=== PATIENT | female | born 1950 | race American Indian/Alaskan Native ===

== ENCOUNTER 2017-09-03 11:13 | Emergency (ER) | payer BC ==
[2017-09-03 11:40] VITALS: TEMP 98.1
--- NOTE | 2017-09-03 12:05 | ED PDOC ---
Arrival/HPI - History of Present Illness Time/Duration: 24 hours Symptom Onset: Sudden Symptom Course: Unchanged Context: Standing, Walking - General Chief Complaint: Dizziness/Lightheaded Time Seen by Provider: 09/03/17 11:34 - History of Present Illness Narrative History of Present Illness (Text): 66 year old female with a PMHx of HTN, GERD, Uterine CA (5 years Remission) presents with Dizziness x 1 day with associated generalized weakness. Patient denies any recent changes in medication, palpitations, or increased urinary frequency. Patient denies any headache, fever, chills, chest pain, abdominal pain, n/v/d, or constipation. Patient denies falling. She states her dizziness gets worse when she stands from a seated position and walks around. Patient does admit to poor appetite, and sick contacts. She denies frequent caffeine use as well. (Dwayne Hull) Associated Symptoms (Text): 09/03/17 12:25 Seen and examined with the resident. Our history and physical exam reveals an elderly woman complaining of dizziness since yesterday. She has a spinning sensation. She had some nausea which has resolved. No vomiting. She had a headache which has resolved. She has bilateral upper extremity numbness. There is generalized, but no focal, weakness. No difficulty with ambulating or with speech. No chest pain palpitations or dyspnea. Her exam is normal including a full neurological examination. (Lico Bhatia) Past Medical History - Provider Review Nursing Documentation Reviewed: Yes - Infectious Disease Hx of Infectious Diseases: None - Cardiac Hx Cardiac Disorders: Yes - Pulmonary Hx Respiratory Disorders: No - Neurological Hx Neurological Disorder: No - HEENT Hx HEENT Disorder: Yes Other/Comment: glasses - Renal Hx Renal Disorder: No - Endocrine/Metabolic Hx Endocrine Disorders: No - Hematological/Oncological Hx Blood Disorders: No Hx Cancer: Yes (Uterine) Hx Chemotherapy: Yes - Integumentary Hx Dermatological Disorder: No - Musculoskeletal/Rheumatological Hx Musculoskeletal Disorders: No - Gastrointestinal Hx Gastrointestinal Disorders: Yes - Genitourinary/Gynecological Hx Genitourinary Disorders: No - Psychiatric Hx Psychophysiologic Disorder: No Hx Substance Use: No - Surgical History Hx Hysterectomy: Yes - Anesthesia Hx Anesthesia: Yes Hx Anesthesia Reactions: No Family/Social History - Physician Review Nursing Documentation Reviewed: Yes Family/Social History: Hypertension (Father) Smoking Status: Never Smoked Hx Alcohol Use: No Hx Substance Use: No Allergies/Home Meds Allergies/Adverse Reactions: Allergies No Known Allergies Allergy (Verified 09/03/17 11:33) Home Medications: Home Meds Medication Instructions Recorded Confirmed Aspirin [Adult Low Dose Aspirin EC] 1 tab PO DAILY 09/03/17 09/03/17 Levocetirizine Dihydrochloride 5 mg PO DAILY 09/03/17 09/03/17 [Levocetirizine Dihydrochloride] Pantoprazole Sodium [Protonix] 40 mg PO BID 09/03/17 09/03/17 Rosuvastatin Calcium [Crestor] 10 mg PO DAILY 09/03/17 09/03/17 amLODIPine [Norvasc] 5 mg PO DAILY 09/03/17 09/03/17 Review of Systems - Physician Review All systems were reviewed & negative as marked: Yes (As per HPI) - Review of Systems Respiratory: absent: SOB Cardiovascular: absent: Chest Pain, Palpitations Physical Exam Vital Signs Reviewed: Yes Temperature: Afebrile Blood Pressure: Normal Pulse: Regular Respiratory Rate: Normal Pain Distress: None Mental Status: Positive for: Alert and Oriented X 3 - Systems Exam Head: Present: Atraumatic, Normocephalic. No: Tenderness, Swelling, Abrasion Pupils: Present: PERRL Extroacular Muscles: Present: EOMI Conjunctiva: Present: Normal Ears: Present: Normal Mouth: Present: Dry. No: Moist Mucous Membranes Pharnyx: Present: Normal Nose (External): Present: Atraumatic Neck: No: JVD, Bruit Respiratory/Chest: Present: Clear to Auscultation. No: Wheezes, Rales, Rhonchi Cardiovascular: Present: Regular Rate and Rhythm, Normal S1, S2, Peripheal Pulses Present. No: Murmurs Abdomen: Present: Normal Bowel Sounds. No: Tenderness, Distention, Peritoneal Signs Lower Extremity: No: Edema Neurological: Present: GCS=15, Speech Normal Psychiatric: Present: Alert, Oriented x 3 Vital Signs Temp Pulse Resp BP Pulse Ox 09/03/17 11:37 98.1 F 77 14 121/66 99 Medical Decision Making Reassessment Condition: Re-examined, Improved - Lab Interpretations I have reviewed the lab results: Yes (Labs Unremarkable) - RAD Interpretation Vocational Rehabilitation Teacher: Radiologist - EKG Interpretation Interpreted by ED Physician: Yes (NSR, no ST or T wave changes) Type: 12 lead EKG ED Course and Treatment: 66 year old with PMHx of HTN, GERD, and Uterine CA presents w/ dizziness x 1 day. --CMP/CBC --Troponin I --UA --EKG --Head CT --Fluid Bolus --Meclizine --Reassess and Disposition (Dwayne Hull) - Lab Interpretations Lab Results: 09/03/17 12:20 09/03/17 13:02 Lab Results 09/03/17 13:02: Sodium 142, Potassium 3.6, Chloride 104, Carbon Dioxide 26, Anion Gap 15, BUN 12, Creatinine 0.8, Est GFR ( Amer) > 60, Est GFR (Non- Af Amer) > 60, Random Glucose 101, Calcium 9.5, Total Bilirubin 0.3, AST 25, ALT 25, Alkaline Phosphatase 63, Troponin I < 0.01, Total Protein 7.8, Albumin 4.2, Globulin 3.6, Albumin/Globulin Ratio 1.2 09/03/17 12:20: WBC 5.7, RBC 4.43, Hgb 13.0, Hct 39.8, MCV 89.8, MCH 29.3, MCHC 32.7, RDW 14.2, Plt Count 300, MPV 9.9, Gran % 58.9, Lymph % (Auto) 29.2, [place] % (Auto) 11.0 H, Eos % (Auto) 0.7 L, Baso % (Auto) 0.2, Gran # 3.34, Lymph # 1.7 , [place] # 0.6, Eos # 0.0, Baso # 0.01 - RAD Interpretation Narrative RAD Interpretations (Text): 09/03/17 14:[address] shows no Active Diseas (Dwayne Hull) Radiology Orders: 09/03/17 12:06 HEAD W/O CONTRAST [CT] Stat - Medication Orders Current Medication Orders: Discontinued Medications Sodium Chloride (Sodium Chloride 0.9%) 1,000 mls @ 999 mls/hr IV .Q1H1M STA Stop: 09/03/17 13:09 Last Admin: 09/03/17 12:30 Dose: 999 mls/hr eMAR Start Stop Document 09/03/17 12:30 RD (Rec: 09/03/17 12:35 RD [facility] [id number]) Intravenous Solution Start Date 09/03/17 Start Time 12:30 End Date 09/03/17 End time 13:30 Total Infusion Time 60 Meclizine HCl (Antivert) 25 mg PO STAT STA Stop: 09/03/17 12:09 Last Admin: 09/03/17 12:30 Dose: 25 mg Disposition/Present on Arrival - Present on Arrival Any Indicators Present on Arrival: No History of DVT/PE: No History of Uncontrolled Diabetes: No Urinary Catheter: No History of Decub. Ulcer: No History Surgical Site Infection Following: None - Disposition Have Diagnosis and Disposition been Completed?: Yes Disposition Time: 14:02 Patient Plan: Discharge - Disposition Diagnosis: Dizziness Disposition: HOME/ ROUTINE Condition: GOOD Discharge Instructions (ExitCare): Dizziness (ED) Additional Instructions: Please follow up with your primary medical physician Prescriptions: Meclizine [Meclizine*] 25 mg PO DAILY #10 tab Forms: [employer] (Urdu)
[2017-09-03] MEDS ORDERED: Sodium Chloride 0.9% 1,000 ML IV STA (12:09)
[2017-09-03 12:44] LABS: BASO # 0.01 K/mm3 (0.0-2.0); BASO % 0.2 % (0.0-3.0); EOS % 0.7 % (1.5-5.0); GRAN # 3.34 (1.4-6.5); GRAN % 58.9 % (50.0-68.0); HEMATOCRIT 39.8 % (36.0-48.0); LYMPH # 1.7 (1.2-3.4); LYMPH % 29.2 % (22.0-35.0); MEAN CELL VOLUME 89.8 fl (80.0-105.0); MEAN CORPUSCULAR HEMOGLOBIN 29.3 pg (25.0-35.0); MEAN CORPUSCULAR HGB CONC 32.7 g/dl (31.0-37.0); MEAN PLATELET VOLUME 9.9 fl (7.0-11.0); MONO # 0.6 (0.1-0.6); RED CELL DISTRIBUTION WIDTH 14.2 % (11.5-14.5); WHITE BLOOD COUNT 5.7 10^3/ul (4.5-11.0)
--- NOTE | 2017-09-03 13:04 | CT ---
PROCEDURE: CT HEAD WITHOUT CONTRAST. HISTORY: Dizziness COMPARISON: None available. TECHNIQUE: Axial computed tomography images were obtained through the head/brain without intravenous contrast. Radiation dose: Total exam DLP = 775 mGy-cm. This CT exam was performed using one or more of the following dose reduction techniques: Automated exposure control, adjustment of the mA and/or kV according to patient size, and/or use of iterative reconstruction technique. FINDINGS: HEMORRHAGE: No intracranial hemorrhage. BRAIN: No mass effect or edema. No atrophy or chronic microvascular ischemic changes. VENTRICLES: Unremarkable. No hydrocephalus. CALVARIUM: Unremarkable. PARANASAL SINUSES: Unremarkable as visualized. No significant inflammatory changes. MASTOID AIR CELLS: Unremarkable as visualized. No inflammatory changes. OTHER FINDINGS: None. IMPRESSION: No acute findings
[2017-09-03 13:19] LABS: ALB/GLOB RATIO 1.2 (1.1-1.8); ALKALINE PHOSPHATASE 63 U/L (38-126); ALT/SGPT 25 U/L (7-56); AST/SGOT 25 U/L (14-36); BILIRUBIN,TOTAL 0.3 mg/dL (0.2-1.3); BLOOD UREA NITROGEN 12 mg/dL (7-21); CALCIUM 9.5 mg/dL (8.4-10.5); CARBON DIOXIDE 26 mmol/L (21-33); CHLORIDE 104 mmol/L (98-107); GFR AFRICAN-AMERICAN > 60; GLUCOSE,RANDOM 101 mg/dL (70-110); POTASSIUM 3.6 mmol/L (3.6-5.0); SODIUM 142 mmol/L (132-148); TOTAL PROTEIN 7.8 g/dL (5.8-8.3)
[2017-09-03 13:31] LABS: TROPONIN I < 0.01 ng/mL
[2017-09-03 14:14] LABS: URINE BILIRUBIN NEGATIVE (NEGATIVE); URINE BLOOD NEGATIVE (NEGATIVE); URINE GLUCOSE (UA) NEGATIVE (NEGATIVE); URINE KETONE NEGATIVE (NEGATIVE); URINE LEUKOCYTE ESTERASE NEGATIVE Leu/uL (NEGATIVE); URINE PROTEIN NEGATIVE mg/dL (<30 mg/dL); URINE UROBILINOGEN 0.2 E.U./dL (<1 E.U./dL)
[2017-09-03 14:15] VITALS: BP 147/78; PULSE 75; RESP 19; O2SAT 100
[2017-09-03 14:17] LABS: URINE APPEARANCE CLEAR (CLEAR); URINE COLOR YELLOW (YELLOW)
--- NOTE | 2017-09-03 17:05 | CARD ---
APPROVED REPORT EKG Measurement Heart [id number] <Conclusion> Normal sinus rhythm Cannot rule out Anterior infarct, age undetermined Abnormal ECG
== END 2017-09-03 14:15 | disposition home or self-care (01) ==
LOC: ED 11:13
DX: R42 Dizziness and giddiness (principal); I10 Essential (primary) hypertension; K21.9 Gastro-esophageal reflux disease without esophagitis; Z85.42 Personal history of malignant neoplasm of other parts of uterus
CPT/HCPCS: 70450; 80053; 81003; 84484; 85025; 93005; 96360; 99285; J7040